=== PATIENT | male | born 1990 | race Caucasian/White ===

== ENCOUNTER 2023-12-22 01:29 | Emergency (ER) | payer SELFPAY ==
[2023-12-22 01:30] VITALS: BMI 31.3
[2023-12-22 01:31] VITALS: BP 176/112
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
[2023-12-22] MEDS: MOTRIN 800 MG PO (02:07)
[2023-12-22 02:16] LABS: Urine Albumin Trace (Neg - Trace); Urine Bilirubin Negative (Negative); Urine Character Slightly Cloudy (Clear); Urine Color Yellow; Urine Glucose Negative (Negative); Urine Ketone 2+ (Negative); Urine Leukocyte Negative (Negative); Urine Nitrite Negative (Negative); Urine Occult Blood Negative (Negative); Urine Urobilinogen Negative (Neg - 1+)
[2023-12-22 02:26] VITALS: BP 151/111
[2023-12-22 03:42] VITALS: BP 138/83
== END 2023-12-22 03:43 | disposition home or self-care (01) ==
LOC: EMR 01:29
PROVIDERS: EMERGENCY PHYSICIAN Emergency Medicine; FAMILY PHYSICIAN Family Medicine
DX: S30.1XXA Contusion of abdominal wall, initial encounter (principal); S39.012A Strain of muscle, fascia and tendon of lower back, initial encounter; V43.52XA Car driver injured in collision with other type car in traffic accident, initial encounter; Y92.410 Unspecified street and highway as the place of occurrence of the external cause; J45.909 Unspecified asthma, uncomplicated; E66.9 Obesity, unspecified
CPT/HCPCS: 99282; 81003